=== PATIENT | female | born 1960 | race Caucasian/White ===

== ENCOUNTER 2017-04-02 12:36 | Emergency (ER) | payer BC ==
[2017-04-02 12:36] VITALS: BMI 35.5
[2017-04-02 12:40] VITALS: PULSE 74; RESP 18; TEMP 98.5
--- NOTE | 2017-04-02 13:28 | RAD ---
HISTORY: LE edema COMPARISON: Chest x-ray performed 11/07/12 TECHNIQUE: Chest, one view. FINDINGS: Examination limited by habitus. LUNGS: No focal consolidation. Please note that chest x-ray has limited sensitivity for the detection of pulmonary masses. PLEURA: No significant pleural effusion identified. No definite pneumothorax . CARDIOVASCULAR: Heart size appears within normal limits. OSSEOUS STRUCTURES: No acute osseous abnormality identified. VISUALIZED UPPER ABDOMEN: Unremarkable. OTHER FINDINGS: None. IMPRESSION: No focal consolidation, significant pleural effusion, or definite pneumothorax identified.
--- NOTE | 2017-04-02 13:29 | C.PDOC ---
History Of Present Illness Patient is a 56 year old female, with PMHx of Hypercholesterolemia, presents to ED for evaluation of bilateral lower extremity pain and swelling for the last 3 days. Pt notes that she initially noticed swelling then developed pain to bilateral lower extremities. 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 Otherwise, denies any change in sensation , chest pain, shortness of breath, dizziness, lightheadedness, fever, chills, or any other associated symptoms at this time. Time Seen by Provider: 04/02/17 13:03 Chief Complaint (Nursing): Lower Extremity Problem/Injury History Per: Patient History/Exam Limitations: no limitations Onset/Duration Of Symptoms: Days (3) Current Symptoms Are (Timing): Still Present Recent travel outside of the [place]: No Additional History Per: Patient Past Medical History Reviewed: Historical Data, Nursing Documentation, Vital Signs Vital Signs: Last Vital Signs Temp 98.5 F 04/02/17 12:40 Pulse 74 04/02/17 13:45 Resp 18 04/02/17 13:45 BP 154/78 H 04/02/17 13:45 Pulse Ox 98 04/02/17 14:53 - Medical History PMH: Hypercholesterolemia Family History: States: Unknown Family Hx - Social History Hx Tobacco Use: No Hx Alcohol Use: No Hx Substance Use: No - Immunization History Hx Tetanus Toxoid Vaccination: No Hx Influenza Vaccination: No Hx Pneumococcal Vaccination: No Review Of Systems Except As Marked, All Systems Reviewed And Found Negative. Constitutional: Negative for: Fever, Chills Cardiovascular: Negative for: Chest Pain, Palpitations, Light Headedness Respiratory: Negative for: Shortness of Breath Gastrointestinal: Negative for: Nausea, Vomiting, Abdominal Pain Musculoskeletal: Positive for: Leg Pain (bilateral lower extremity pain and swelling). Negative for: Foot Pain Skin: Negative for: Rash, Bruising Neurological: Negative for: Weakness, Numbness, Headache, Dizziness Physical Exam - Physical Exam Appears: Non-toxic, No Acute Distress Skin: Normal Color, Warm, Dry Head: Atraumatic, Normacephalic Eye(s): bilateral: Normal Inspection Oral Mucosa: Moist Neck: Supple Cardiovascular: Rhythm Regular, No Murmur Respiratory: Normal Breath Sounds, No Rales, No Rhonchi, No Wheezing Extremity: Normal ROM (FROM of bilateral legs), Tenderness (bilateral lower extremities), Calf Tenderness (bilateral ), Capillary Refill (<2 sec.), No Deformity, Swelling (bilateral lower extremities ) Extremity: Bilateral: Atraumatic, Normal Color And Temperature, Normal ROM Pulses: Left Dorsalis Pedis: Normal, Right Dorsalis Pedis: Normal Neurological/Psych: Oriented x3, Normal Speech, Normal Motor, Normal Sensation ED Course And Treatment - Laboratory Results Result Diagrams: 04/02/17 13:39 04/02/17 13:39 O2 Sat by Pulse Oximetry: 98 (RA) Pulse Ox Interpretation: Normal Progress Note: Blood work, urinalysis, CXR, and bilateral lower extremities venous duplex scan ordered and reviewed. On reassessment, patient is resting comfortably, and is in no acute distress. Duplex scan was negative. Patient was instructed to follow up in clinic in 1-2 days for further evaluation. Disposition - Disposition Referrals: Chely John MD [Staff Provider] - Disposition: HOME/ ROUTINE Disposition Time: 14:50 Condition: STABLE Additional Instructions: Follow up with PMD within 1-2 days. Return to ED if feel worse. 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 - Scribe Statement The provider has reviewed the documentation as recorded by the Scribe Raquel Davey All medical record entries made by the Lamaribdarshan were at my direction and personally dictated by me. I have reviewed the chart and agree that the record accurately reflects my personal performance of the history, physical exam, medical decision making, and the department course for this patient. I have also personally directed, reviewed, and agree with the discharge instructions and disposition.
[2017-04-02 13:46] VITALS: BP 154/78
[2017-04-02 13:46] LABS: BASO % 0.4 % (0.0-2.0); EOS # 0.1 K/uL (0.0-0.7); EOS % 0.9 % (0.0-4.0); HEMATOCRIT 34.8 % (34.0-47.0); LYMPH # 2.3 K/uL (1.0-4.3); LYMPH % 35.1 % (20.0-40.0); MEAN CELL VOLUME 76.8 fL (81.0-99.0); MEAN CORPUSCULAR HEMOGLOBIN 25.8 pg (27.0-31.0); MEAN CORPUSCULAR HGB CONC 33.5 g/dL (33.0-37.0); MEAN PLATELET VOLUME 6.8 fL (7.2-11.7); MONO # 0.5 K/uL (0.0-0.8); MONO % 8.4 % (0.0-10.0); NRBC % 0.1 % (0.0-2.0); RED CELL DISTRIBUTION WIDTH 15.5 % (11.5-14.5); WHITE BLOOD COUNT 6.5 K/uL (4.8-10.8)
[2017-04-02 14:01] LABS: ALB/GLOB RATIO 1.1 (1.0-2.1); ALKALINE PHOSPHATASE 95 U/L (38-126); ALT/SGPT 34 U/L (9-52); AST/SGOT 26 U/L (14-36); BILIRUBIN,TOTAL 0.9 mg/dL (0.2-1.3); BLOOD UREA NITROGEN 13 mg/dL (7-17); CALCIUM 8.7 mg/dl (8.6-10.4); CARBON DIOXIDE 29 mmol/L (22-30); CHLORIDE 97 mmol/L (98-107); GFR AFRICAN-AMERICAN > 60; GLUCOSE,RANDOM 113 mg/dL (65-105); POTASSIUM 3.8 mmol/L (3.6-5.2); SODIUM 139 mmol/L (132-148); TOTAL PROTEIN 6.9 g/dL (6.3-8.3)
[2017-04-02 14:02] LABS: RBC URINE 1 /hpf (0-3); URINE BILIRUBIN NEGATIVE (NEGATIVE); URINE BLOOD NEGATIVE (NEGATIVE); URINE COLOR Yellow (YELLOW); URINE GLUCOSE (UA) NORMAL (Normal); URINE KETONE NEGATIVE (NEGATIVE); URINE LEUKOCYTE ESTERASE NEG Leu/uL (Negative); URINE PROTEIN NEGATIVE (NEGATIVE); URINE UROBILINOGEN NORMAL mg/dL (0.2-1.0); WBC URINE < 1 /hpf (0-5)
[2017-04-02 14:53] VITALS: O2SAT 98
--- NOTE | 2017-04-03 16:41 | VASCLAB ---
PROCEDURE: Lower Extremity Venous Duplex Exam. HISTORY: LE edema and pain PRIORS: Last lower venous duplex 04/10/2016, normal. TECHNIQUE: Bilateral common femoral, femoral, popliteal and posterior tibial, peroneal and great saphenous veins were evaluated. Flow was assessed with color Doppler, compressibility, assessment of phasic flow and augmentation response. Report prepared by JOSÉ Bowser FINDINGS: RIGHT: 1. Common Femoral Vein: 1.1. Compressibility - Fully compressible: Thrombus - None : Flow - Phasic: Augmentation -Normal: Reflux - None. 2. Femoral Vein: 2.1. Compressibility - Fully compressible: Thrombus - None : Flow - Phasic: Augmentation -Normal: Reflux - None. 3. Popliteal Vein: 3.1. Compressibility - Fully compressible: Thrombus - None : Flow - Phasic: Augmentation -Normal: Reflux - None. 4. Posterior Tibial Vein: 4.1. Compressibility - Fully compressible: Thrombus - None: Flow - Phasic: Augmentation -Normal: Reflux - None. 5. Peroneal Vein: 5.1. Compressibility - Fully compressible: Thrombus - None: Flow - Phasic: Augmentation -Normal: Reflux - None. 6. Great Saphenous Vein: 6.1. Compressibility - Fully compressible: Thrombus - None: Flow - Phasic: Augmentation - Normal: Reflux - None. LEFT: 1. Common Femoral Vein: 1.1. Compressibility - Fully compressible: Thrombus - None: Flow - Phasic: Augmentation -Normal: Reflux - None. 2. Femoral Vein: 2.1. Compressibility - Fully compressible: Thrombus - None: Flow - Phasic: Augmentation -Normal: Reflux - None. 3. Popliteal Vein: 3.1. Compressibility - Fully compressible: Thrombus - None : Flow - Phasic: Augmentation -Normal: Reflux - None. 4. Posterior Tibial Vein: 4.1. Unable to image. 5. Peroneal Vein: 5.1. Compressibility - Fully compressible: Thrombus - None: Flow - Phasic: Augmentation -Normal: Reflux - None. 6. Great Saphenous Vein: 6.1. Compressibility - Fully compressible: Thrombus - None: Flow - Phasic: Augmentation - Normal: Reflux - None. OTHER FINDINGS: Right: None significant. Left: None significant. IMPRESSION: Right: No evidence of deep or superficial vein thrombosis of the right lower extremity. Normal valve function noted of the right side. Left: Unable to image the left posterior tibial veins, due to swelling. No evidence of deep or superficial vein thrombosis for the remaining veins, in the left lower extremity. Normal valve function noted of the left side.
== END 2017-04-02 15:03 | disposition home or self-care (01) ==
LOC: C.ER 12:36
DX: R60.0 Localized edema (principal)

== ENCOUNTER 2017-06-19 14:36 | Emergency (ER) | payer BC ==
[2017-06-19 14:37] VITALS: BMI 35.5
[2017-06-19 14:54] VITALS: PULSE 72; O2SAT 100
--- NOTE | 2017-06-19 15:58 | C.PDOC ---
This 57 year old female with PMHx of HTN and LE edema - presents to the ED c/o right shoulder pain for the past 3 days. 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 She admits the pain started sporadically and denies any inciting trauma or injury. The pain spread from her shoulder to her R elbow over 3 days, and is rated an 8/ 10. She took Ibuprofen 600mg PO (1 tab) with minimal relief. She reports limited ROM secondary to pain and mild swelling of her R hand and forearm. She reports her hands are typically very cool to the touch, however this morning, she experienced 2 episodes where her R hand turned blue and felt extremely cool. She denies numbness, tinging, fevers, chills, chest pain, SOB, or any recent URI. (Avila Thakur) History Per: Patient History/Exam Limitations: no limitations Onset/Duration Of Symptoms: Sudden Onset, Persistent Current Symptoms Are (Timing): Still Present Severity: Moderate Pain Scale Rating Of: 8 Reports Recently: Seen In ED <Avila Thakur - Last Filed: 06/19/17 16:35> <aSvi Adam - Last Filed: 06/19/17 18:00> Time Seen by Provider: 06/19/17 15:10 Chief Complaint (Nursing): Upper Extremity Problem/Injury Past Medical History - Medical History PMH: HTN, Hypercholesterolemia Family History: States: Unknown Family Hx - Social History Hx Tobacco Use: No Hx Alcohol Use: No Hx Substance Use: No - Immunization History Hx Tetanus Toxoid Vaccination: No Hx Influenza Vaccination: No Hx Pneumococcal Vaccination: No <Avila Thakur - Last Filed: 06/19/17 16:35> Vital Signs: Last Vital Signs Temp 97.9 F 06/19/17 14:51 Pulse 72 06/19/17 14:51 Resp 18 06/19/17 14:51 BP 138/90 06/19/17 14:51 Pulse Ox 100 06/19/17 16:36 Review Of Systems Constitutional: Negative for: Fever, Chills, Weakness, Malaise Cardiovascular: Positive for: Edema. Negative for: Chest Pain, Palpitations Respiratory: Negative for: Cough, Shortness of Breath, Pleuritic Pain Skin: Positive for: Other (Cool skin of R upper extremity - hand / forearm). Negative for: Rash, Lesions Neurological: Positive for: Weakness (of R arm, secondary to pain). Negative for: Numbness, Confusion, Headache, Dizziness <Avila Thakur - Last Filed: 06/19/17 16:35> Physical Exam - Physical Exam Appears: Well, Non-toxic, No Acute Distress Skin: No Normal Color (R hand briefly turned blue during exam), No Warm (Cool R hand / forearm), Dry, No Rash Head: No Atraumatic, No Normacephalic Eye(s): bilateral: Normal Inspection, PERRL, EOMI Neck: Normal, Normal ROM, No Paracervical Tenderness, Supple Cardiovascular: Other (peripheral pulses intact) Extremity: Normal ROM, No Tenderness, Pedal Edema (bilateral LE, 1+ pitting to knee), No Calf Tenderness, Capillary Refill, Other (Tender to palpation of R clavicle from sternum to acromion process; R shoulder dec. ROM (active/passive) secondary to pain in all planes, markedly limited to 90 degrees of flexion. Adson's Test Negative. Mild R hand/forearm swelling. R hand cool to touch. R hand became cyanotic during ROM testing.) Extremity: Bilateral: Atraumatic Pulses: Left Radial: Normal, Right Radial: Normal, Left Dorsalis Pedis: Normal, Right Dorsalis Pedis: Normal DTR: Bicep (R): 2+, Bicep (L): 2+, Tricep (R): 0 (could not ellicit secondry to body habitus), Tricep (L): 0 (could not ellicit secondry to body habitus), Knee (R): 2+, Knee (L): 2+, Ankle (R): 2+, Ankle (L): 2+ Neurological/Psych: Oriented x3, Normal Speech, Normal Cognition, Normal Cranial Nerves, No Cerebellar Signs, Normal Motor, Normal Sensation <Avila Thakur - Last Filed: 06/19/17 16:35> - Physical Exam Extremity: Other <Savi Adam - Last Filed: 06/19/17 18:00> ED Course And Treatment O2 Sat by Pulse Oximetry: 100 <Avila Thakur - Last Filed: 06/19/17 16:35> Disposition <Avila Thakur - Last Filed: 06/19/17 16:35> Counseled Patient/Family Regarding: Studies Performed, Need For Followup, Rx Given - Disposition Disposition Time: 17:59 - POA Present On Arrival: None <Savi Adam - Last Filed: 06/19/17 18:00> - Disposition Disposition: HOME/ ROUTINE Condition: STABLE Prescriptions: Ibuprofen [Motrin] 600 mg PO TID #15 tab Instructions: Shoulder Pain (ED) Forms: [facility] (Hong Konger), Work Excuse - Clinical Impression Clinical Impression: Bursitis, Shoulder pain, right
[2017-06-19 18:07] VITALS: BP 135/86; RESP 20; TEMP 98.7
--- NOTE | 2017-06-19 18:42 | RAD ---
PROCEDURE: Right shoulder dated 06/19/2017 HISTORY: pain and swelling, no injury no evidence COMPARISON: No prior. FINDINGS: BONES: Normal. No fracture. JOINTS: Normal. Glenohumeral and acromioclavicular joints preserved. No osteoarthritis. SOFT TISSUES: Normal. OTHER FINDINGS: None. IMPRESSION: Of acute displaced fracture nor dislocation.
--- NOTE | 2017-06-20 08:25 | RAD ---
Right elbow three views History: Pain and swelling. Comparison: None available. Findings: On the oblique view, there is a punctate bony protruberance and or ossific density seen at the level of the medial humeral condyle, nonspecific. No evidence of elbow joint effusion. Impression: On the oblique view, there is a punctate bony protruberance and or ossific density seen at the level of the medial humeral condyle, nonspecific. No evidence of elbow joint effusion. If pain persists, consider MRI.
== END 2017-06-19 18:07 | disposition home or self-care (01) ==
LOC: C.ER 14:36
DX: M75.51 Bursitis of right shoulder (principal); M25.511 Pain in right shoulder

== ENCOUNTER 2018-02-16 19:43 | Emergency (ER) | payer BC ==
[2018-02-16 19:44] VITALS: BMI 35.5
[2018-02-16 19:52] VITALS: RESP 20; O2SAT 100
[2018-02-16 20:35] LABS: BASO % 0.5 % (0.0-2.0); EOS # 0.1 K/uL (0.0-0.7); EOS % 1.8 % (0.0-4.0); HEMOGLOBIN 12.6 g/dL (11.0-16.0); LYMPH # 2.5 K/uL (1.0-4.3); LYMPH % 33.5 % (20.0-40.0); MEAN CELL VOLUME 79.3 fL (81.0-99.0); MEAN CORPUSCULAR HEMOGLOBIN 27.4 pg (27.0-31.0); MEAN CORPUSCULAR HGB CONC 34.6 g/dL (33.0-37.0); MEAN PLATELET VOLUME 6.8 fL (7.2-11.7); MONO # 0.7 K/uL (0.0-0.8); MONO % 9.9 % (0.0-10.0); NEUT # 4.1 K/uL (1.8-7.0); NEUT % 54.3 % (50.0-75.0); RBC 4.6 Mil/uL (3.80-5.20); RED CELL DISTRIBUTION WIDTH 14.3 % (11.5-14.5); WHITE BLOOD COUNT 7.5 K/uL (4.8-10.8)
[2018-02-16 20:52] LABS: ALB/GLOB RATIO 1.2 (1.0-2.1); ALT/SGPT 43 U/L (9-52); AST/SGOT 32 U/L (14-36); BLOOD UREA NITROGEN 16 mg/dL (7-17); CALCIUM 9.4 mg/dl (8.6-10.4); GFR AFRICAN-AMERICAN > 60; GFR NON-AFRICAN AMERICAN > 60
--- NOTE | 2018-02-16 21:02 | C.PDOC ---
Time Seen by Provider: 02/16/18 20:52 Chief Complaint (Nursing): Chest Pain Past Medical History Vital Signs: Last Vital Signs Temp 97.9 F 02/16/18 19:48 Pulse 81 02/16/18 20:24 Resp 20 02/16/18 19:48 BP 152/83 H 02/16/18 19:48 Pulse Ox 100 02/16/18 21:02 - Medical History PMH: HTN, Hypercholesterolemia Family History: States: Unknown Family Hx - Social History Hx Tobacco Use: No Hx Alcohol Use: No Hx Substance Use: No - Immunization History Hx Tetanus Toxoid Vaccination: No Hx Influenza Vaccination: No Hx Pneumococcal Vaccination: No ED Course And Treatment - Laboratory Results Result Diagrams: 02/16/18 20:31 02/16/18 20:31 ECG: Interpreted By Me, Viewed By Me ECG Rhythm: Sinus Rhythm (81), Nonspecific Changes O2 Sat by Pulse Oximetry: 100 Pulse Ox Interpretation: Normal Disposition Counseled Patient/Family Regarding: Studies Performed, Diagnosis - Disposition Disposition Time: 21:02 Forms: [facility] (Polish)
[2018-02-16] MEDS ORDERED: Aspirin 325 mg EC Tablets PO STA (21:03)
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
[2018-02-16] MEDS ORDERED: Aspirin 325 mg EC Tablets PO ONE (21:18)
[2018-02-16] MEDS ORDERED: Albuterol-Ipratrop 3 mg / 0.5 (3 ml) UD ONE (21:25)
[2018-02-16] MEDS: Albuterol-Ipratrop 3 mg / 0.5 (3 ml) UD IH SCH (21:28)
[2018-02-16 22:36] VITALS: BP 149/80; PULSE 86; TEMP 98
--- NOTE | 2018-02-17 12:12 | RAD ---
Chest x-ray two views History: Chest pain. Comparison: 04/02/2017 Findings: Diffuse increased interstitial lung markings. Mild right midlung atelectasis. Small nodular density at the left lung base. Tortuous ectatic aorta. Heart size within normal limits. Degenerative changes in the spine. Impression: Diffuse increased interstitial lung markings. Mild right midlung atelectasis. Small nodular density at the left lung base. Tortuous ectatic aorta.
--- NOTE | 2018-02-17 22:32 | CARD ---
APPROVED REPORT EKG Measurement Heart [id number] <Conclusion> Normal sinus rhythm ST & T wave abnormality, consider anterior ischemia Abnormal ECG
== END 2018-02-16 22:36 | disposition home or self-care (01) ==
LOC: C.ER 19:43
DX: F41.9 Anxiety disorder, unspecified (principal); R05 Cough; I10 Essential (primary) hypertension; E78.00 Pure hypercholesterolemia, unspecified

== ENCOUNTER 2018-10-03 18:10 | Emergency (ER) | payer BC ==
[2018-10-03 18:11] VITALS: BMI 35.5
[2018-10-03 18:28] VITALS: TEMP 98; O2SAT 98
--- NOTE | 2018-10-03 19:23 | C.PDOC ---
History Of Present Illness 58 year old female, whose past medical history includes hypertension, presents to the ED for evaluation of headache and cough which began around 5 days ago. Patient states her headache is mild, frontal, and occurs intermittently. She states her cough is productive of yellow sputum. Patient did not receive the flu vaccination this season, and denies sick contacts. She denies fever, chills, dizziness, vision changes, photophobia, abdominal pain, nausea, vomiting, neck pain/stiffness at this time. <Anitra Cabral - Last Filed: 10/05/18 01:05> <Viviana Enciso - Last Filed: 10/04/18 17:45> History Per: Patient History/Exam Limitations: no limitations Onset/Duration Of Symptoms: Days (5), Intermittent Episodes Current Symptoms Are (Timing): Still Present Location Of Pain: Headache Sick Contacts (Context): None Associated Symptoms: Cough, Sputum (yellow ). denies: Fever, Chills, Neck Pain, Nausea, Vomiting Additional History Per: Patient <Anitra Cabral - Last Filed: 10/05/18 01:05> Time Seen by Provider: 10/03/18 19:01 Chief Complaint (Nursing): Cough, Cold, Congestion Past Medical History Vital Signs: Last Vital Signs Temp 98.0 F 10/03/18 18:26 Pulse 85 10/03/18 20:05 Resp 16 10/03/18 20:05 BP 132/75 10/03/18 20:05 Pulse Ox 98 10/04/18 04:53 <Viviana Enciso - Last Filed: 10/04/18 17:45> Reviewed: Historical Data, Nursing Documentation, Vital Signs Vital Signs: Last Vital Signs Temp 98.0 F 10/03/18 18:26 Pulse 84 10/03/18 18:26 Resp 20 10/03/18 18:26 BP 143/90 10/03/18 18:26 Pulse Ox 98 10/03/18 18:26 - Medical History PMH: HTN, Hypercholesterolemia Surgical History: No Surg Hx Family History: States: Unknown Family Hx - Social History Hx Tobacco Use: No Hx Alcohol Use: No Hx Substance Use: No - Immunization History Hx Tetanus Toxoid Vaccination: No Hx Influenza Vaccination: No Hx Pneumococcal Vaccination: No <Anitra Cabral - Last Filed: 10/05/18 01:05> Review Of Systems Constitutional: Negative for: Fever, Chills Eyes: Negative for: Vision Change ENT: Negative for: Nose Congestion, Throat Pain Cardiovascular: Negative for: Chest Pain, Palpitations, Light Headedness Respiratory: Positive for: Cough, Sputum (yellow ) Gastrointestinal: Negative for: Nausea, Vomiting, Abdominal Pain Musculoskeletal: Negative for: Neck Pain, Back Pain Skin: Negative for: Rash Neurological: Positive for: Headache. Negative for: Weakness, Numbness, Incoordination, Seizures, Altered Mental Status, Dizziness <Anitra Cabral - Last Filed: 10/05/18 01:05> Physical Exam - Physical Exam Appears: Non-toxic, No Acute Distress Skin: Normal Color, Warm, Dry Head: Atraumatic, Normacephalic Eye(s): bilateral: Normal Inspection, PERRL, EOMI Oral Mucosa: Moist Neck: Normal ROM, Supple Chest: Symmetrical, No Deformity, No Tenderness Cardiovascular: Rhythm Regular, No Murmur Respiratory: Normal Breath Sounds, No Rales, No Rhonchi, No Wheezing Extremity: Normal ROM, Capillary Refill (less than 2 seconds ) Neurological/Psych: Oriented x3, Normal Speech, Normal Cognition Gait: Steady <Anitra Cabral - Last Filed: 10/05/18 01:05> ED Course And Treatment O2 Sat by Pulse Oximetry: 98 (on RA) Pulse Ox Interpretation: Normal <Anitra Cabral - Last Filed: 10/05/18 01:05> Medical Decision Making Medical Decision Making: I spoke to bhargavi's daughter, Malini, 10/04/18 at 1745, discussed that she (patient Luis Felipe) recommended to get ct chest after resolution of pneumonia to re-evaluate nodule that was seen on this cxr and an older one as well. Daughter Malini expressed understanding. <Viviana Enciso - Last Filed: 10/04/18 17:45> Medical Decision Making: Plan: * CXR * Tylenol PO * Tessalon Perles PO * Reassess and disposition Progress: CXR ordered and reviewed. Shows increased opacity of left lower lobe, suspicious for early pneumonia as read by me. Will give Z-pancho and advise PMD followup. Pt with stable vital signs at this time, afebrile, normal heart rate, normal O2 saturation. Tylenol PO and Tessalon Perles PO given. On reassessment, patient is resting comfortably, showing no signs of distress and reports an improvement of her headache and cough. Patient is stable for discharge and is advised to follow up with her PMD within 1-2 days for further evaluation. Diagnostic testing results and plan of care discussed with patient. Strict instructions given regarding prescription use, importance of followup, and si gns/symptoms to return to ER including fever, chills, vomiting, chest pain, SOB, or any other new/worsening symptoms. Pt verbalized understanding of discussion. Patient is A&Ox3, ambulating with steady gait, with vital signs stable for discharge. <Anitra Cabral - Last Filed: 10/05/18 01:05> Disposition <Viviana Enciso - Last Filed: 10/04/18 17:45> - Disposition Disposition Time: 19:20 <Anitra Cabral - Last Filed: 10/05/18 01:05> - Disposition Referrals: [facility] [Outside] Disposition: HOME/ ROUTINE Condition: IMPROVED Additional Instructions: Increase fluids Tylenol/ibuprofen for headache Ventolin inhaler every 6 hours as needed for cough Z-pancho as directed daily Tessalon perles every 8 hours as needed for cough Return to ER with any new/worsening symptoms Prescriptions: Albuterol HFA [Ventolin HFA 90 mcg/actuation (8 g)] 2 puff IH [id number] PRN #1 pump PRN Reason: Cough Azithromycin [Z-Pancho] 250 mg PO DAILY #6 tab Benzonatate [Tessalon Perles] 100 mg PO Q8H PRN #15 tab PRN Reason: Cough Instructions: Pneumonia, Adult (DC) Forms: General Discharge Instructions, [facility] (French), Work Excuse - Clinical Impression Clinical Impression: Pneumonia - 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 - Scribe Statement The provider has reviewed the documentation as recorded by the Scribe (Solange Davey) All medical record entries made by the Scribe were at my direction and personally dictated by me. I have reviewed the chart and agree that the record accurately reflects my personal performance of the history, physical exam, medical decision making, and the department course for this patient. I have also personally directed, reviewed, and agree with the discharge instructions and disposition. <Anitra Cabral - Last Filed: 10/05/18 01:05>
[2018-10-03 20:05] VITALS: BP 132/75; PULSE 85; RESP 16
--- NOTE | 2018-10-04 10:18 | RAD ---
HISTORY: cough COMPARISON: Chest x-ray performed 02/16/18 TECHNIQUE: Chest PA and lateral FINDINGS: Examination limited by habitus and hypoinflation. LUNGS: Mild left basilar atelectasis/infiltrate. Small nodular opacity re-identified at the left lung base. Please note that chest x-ray has limited sensitivity for the detection of pulmonary masses. PLEURA: No significant pleural effusion identified. No definite pneumothorax . CARDIOVASCULAR: Heart size appears within normal limits. No atherosclerotic calcification present. OSSEOUS STRUCTURES: Degenerative changes. VISUALIZED UPPER ABDOMEN: Mild elevation of the right hemidiaphragm. OTHER FINDINGS: None. IMPRESSION: Mild left basilar atelectasis/infiltrate. Small nodular opacity re-identified at the left lung base. Upon completion of treatment for acute symptoms, follow-up CT of the chest may be considered for further evaluation if indicated. Study marked for PA review.
== END 2018-10-03 20:05 | disposition home or self-care (01) ==
LOC: C.ER 18:10
DX: J18.9 Pneumonia, unspecified organism (principal); I10 Essential (primary) hypertension; E78.00 Pure hypercholesterolemia, unspecified

== ENCOUNTER 2018-10-28 10:23 | Emergency (ER) | payer BC ==
[2018-10-28 10:24] VITALS: BMI 35.5
[2018-10-28 10:44] VITALS: BP 157/88; PULSE 77; RESP 18; TEMP 97.5; O2SAT 99
--- NOTE | 2018-10-28 11:59 | RAD ---
PROCEDURE: Left Knee Radiographs. HISTORY: knee pain and swelling COMPARISON: None available FINDINGS: BONES: Degenerative changes including tenting of the intercondylar notch. No acute displaced fracture identified. JOINTS: No dislocation. Tricompartmental narrowing. JOINT EFFUSION: Moderate-sized suprapatellar joint effusion. OTHER FINDINGS: None. IMPRESSION: Moderate-sized suprapatellar joint effusion. Degenerative changes. No acute displaced fracture identified. If this is of high clinical concern, suggest further evaluation with cross-sectional imaging.
--- NOTE | 2018-10-28 12:30 | C.PDOC ---
History Of Present Illness 58 year old female presents to the ED for evaluation of left knee pain and swelling which began around 2 weeks ago. Patient reports difficulty flexing her knee and states symptoms are worse with standing and movement. Patient denies extremity numbness or weakness, no fever. Time Seen by Provider: 10/28/18 11:14 Chief Complaint (Nursing): Lower Extremity Problem/Injury History Per: Patient History/Exam Limitations: no limitations Onset/Duration Of Symptoms: Other (two weeks ) Current Symptoms Are (Timing): Still Present Additional History Per: Patient Past Medical History Reviewed: Historical Data, Nursing Documentation, Vital Signs Vital Signs: Last Vital Signs Temp 97.5 F L 10/28/18 10:41 Pulse 77 10/28/18 10:41 Resp 18 10/28/18 10:41 BP 157/88 H 10/28/18 10:41 Pulse Ox 99 10/28/18 10:41 - Medical History PMH: HTN, Hypercholesterolemia Surgical History: No Surg Hx Family History: States: Unknown Family Hx - Social History Hx Tobacco Use: No Hx Alcohol Use: No Hx Substance Use: No - Immunization History Hx Tetanus Toxoid Vaccination: No Hx Influenza Vaccination: No Hx Pneumococcal Vaccination: No Review Of Systems Constitutional: Negative for: Fever Musculoskeletal: Positive for: Other (left knee pain and swelling ). Negative for: Back Pain Skin: Negative for: Bruising Neurological: Negative for: Weakness, Numbness Physical Exam - Physical Exam Appears: Non-toxic, No Acute Distress Skin: Normal Color, Warm, Dry, Other (minimal warmth to left knee ) Head: Atraumatic, Normacephalic Extremity: No Normal ROM (limited in left knee secondary to pain ), Tenderness (mild, left posterior thigh ), Calf Tenderness (mild, left posterior ), Capillary Refill (less than 2 seconds ) Neurological/Psych: Normal Speech, Normal Cognition, Normal Sensation ED Course And Treatment O2 Sat by Pulse Oximetry: 99 (on RA) Pulse Ox Interpretation: Normal - Other Rad left knee XR X-Ray: Viewed By Me, Read By Radiologist Interpretation: PROCEDURE: Left Knee Radiographs. HISTORY: knee pain and swelling. COMPARISON: None available. FINDINGS: BONES: Degenerative changes including tenting of the intercondylar notch. No acute displaced fracture identified. JOINTS: No dislocation. Tricompartmental narrowing. JOINT EFFUSION: Moderate-sized suprapatellar joint effusion. OTHER FINDINGS: None. IMPRESSION: Moderate-sized suprapatellar joint effusion. Degenerative changes. No acute displaced fracture identified. If this is of high clinical concern, suggest further evaluation with cross-sectional imaging. Medical Decision Making Medical Decision Making: Left knee XR and DVT study ordered and reviewed. pt with 2 weeks left knee and leg pain; doppler neg for dvt, xray shows arthritis and large suprapatellar effusion. results discussed with patient and . will apply knee brace and f.u ortho Disposition Counseled Patient/Family Regarding: Studies Performed, Diagnosis, Need For Followup, Rx Given - Disposition Referrals: Reginaldo Hicks III, MD [Staff Provider] - Disposition: HOME/ ROUTINE Disposition Time: 12:32 Condition: GOOD Additional Instructions: Please wear knee brace during daytime hours. Apply cold compresses to knee several times a day. Take ibuprofen 600 mg every 8 hours for pain. FOllow up with orthopedics. 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 - Scribe Statement The provider has reviewed the documentation as recorded by the Scribe (Solange Davey) All medical record entries made by the Scribe were at my direction and personally dictated by me. I have reviewed the chart and agree that the record accurately reflects my personal performance of the history, physical exam, medical decision making, and the department course for this patient. I have also personally directed, reviewed, and agree with the discharge instructions and disposition.
--- NOTE | 2018-11-01 13:10 | VASCLAB ---
Date of service: 10/28/2018 PROCEDURE: Left Lower Extremity Venous Duplex Exam. HISTORY: left posterior thigh and calf pain PRIORS: None. TECHNIQUE: Left common femoral, femoral, popliteal and posterior tibial, peroneal and great saphenous veins were evaluated. Flow was assessed with color Doppler, compressibility, assessment of phasic flow and augmentation response. Report prepared by TRINY Garcia, RVT FINDINGS: LEFT: 1. Common Femoral Vein: 1.1. Compressibility - Fully compressible: Thrombus - None : Flow - Phasic: Augmentation -Normal: Reflux - None. 2. Femoral Vein: 2.1. Compressibility - Fully compressible: Thrombus - None: Flow - Phasic: Augmentation -Normal: Reflux - None. 3. Popliteal Vein: 3.1. Compressibility - Fully compressible: Thrombus - None: Flow - Phasic: Augmentation -Normal: Reflux - None. 4. Posterior Tibial Vein: 4.1. Compressibility - Fully compressible: Thrombus - None: Flow - Phasic: Augmentation -Normal: Reflux - None. 5. Peroneal Vein: 5.1. Compressibility - Fully compressible: Thrombus - None: Flow - Phasic: Augmentation -Normal: Reflux - None. 6. Great Saphenous Vein: 6.1. Compressibility - Fully compressible: Thrombus - None: Flow - Phasic: Augmentation - Normal: Reflux - None. OTHER FINDINGS: IMPRESSION: No evidence of deep or superficial vein thrombosis of the left lower extremity with excellent venous flow. Normal valve function noted of the left side. Normal venous flow noted in the right common femoral vein.
== END 2018-10-28 12:49 | disposition home or self-care (01) ==
LOC: C.ER 10:23
DX: M25.462 Effusion, left knee (principal); M25.562 Pain in left knee